=== PATIENT | male | born 1945 | race Caucasian/White ===

== ENCOUNTER → 2017-06-08 | Outpatient (CLI) | payer MEDICARE, OTHER ==
[~2017-06-08] MED LIST: ASPI81CH43 PO; CAR3125T PO; IRBE300T18 PO
== END | disposition home or self-care (01) ==
LOC: Rad HDHVI 12:46
PROVIDERS: ATTEND Internal Medicine Cardiovascular Disease
DX: I42.0 Dilated cardiomyopathy (principal); I50.23 Acute on chronic systolic (congestive) heart failure
CPT/HCPCS: 93306

== ENCOUNTER → 2017-06-12 | Outpatient (CLI) | payer MEDICARE, OTHER ==
[~2017-06-12] VITALS: Ht 177.8 cm; Wt 122.5 kg
[2017-06-12 16:24] LABS: Basophils # (auto) 0.1 uL; Basophils % (auto) 1.3 % (0.0-2.0); Eosinophils # (auto) 0.2 uL; Eosinophils % (auto) 3.1 % (0.0-7.0); Hematocrit 44.4 % (41.0-53.0); Hemoglobin 15.5 g/dL (13.5-17.5); Lymphocytes # (auto) 1.4 uL; Lymphocytes % (auto) 25.6 % (10.0-50.0); Mean Corpuscular Hemoglobin 32.3 pg (28.0-32.0); Mean Corpuscular Hgb Conc. 34.8 g/dL (32.0-36.0); Mean Corpuscular Volume 92.7 fL (80.0-100.0); Monocytes # (auto) 0.4 uL; Monocytes % (auto) 7.5 % (0.0-12.0); Neutrophils # (auto) 3.4 uL; Neutrophils % (auto) 62.5 % (37.0-80.0); Nucleated Red Blood Cells % 0.2 %; Platelet Count (auto) 176 10^3/uL (140-450); Red Blood Cells 4.79 10^6/uL (4.5-5.90); Red Cell Distribution Width 12.9 % (11.8-14.3); White Blood Cell 5.5 10^3/uL (4.4-10.8)
[2017-06-12 16:35] LABS: Free T4 (Free Thyroxine) 0.93 ng/dL (0.89-1.76); Prostate Specific Antigen 3.3 ng/mL (0.0-4.0)
[2017-06-12 16:43] LABS: Albumin 3.8 g/dL (3.4-5.0); BUN/Creatinine Ratio 13.4; Bilirubin, Total 0.9 mg/dL (0.2-1.0); Calcium 9.1 mg/dL (8.5-10.1); Potassium 3.5 mmol/L (3.5-5.1); Total Protein 7.3 g/dL (6.4-8.2)
[2017-06-12 17:19] LABS: Urine Blood Negative /uL (Negative); Urine Specific Gravity 1.016 (1.001-1.035)
== END | disposition home or self-care (01) ==
LOC: Rad HDHVI 10:19
PROVIDERS: ATTEND Internal Medicine Cardiovascular Disease
DX: I42.0 Dilated cardiomyopathy (principal); I11.0 Hypertensive heart disease with heart failure; I50.43 Acute on chronic combined systolic (congestive) and diastolic (congestive) heart failure; E78.00 Pure hypercholesterolemia, unspecified; D64.9 Anemia, unspecified; E11.9 Type 2 diabetes mellitus without complications; E03.9 Hypothyroidism, unspecified; E55.9 Vitamin D deficiency, unspecified; D51.9 Vitamin B12 deficiency anemia, unspecified; N39.0 Urinary tract infection, site not specified; R53.81 Other malaise; R97.20 Elevated prostate specific antigen [PSA]
CPT/HCPCS: 36415; 78452; 80053; 80061; 81003; 82306; 82607; 83036; 84153; 84402; 84403; 84439; 84443; 85025; 93017; 96374; A9500

== ENCOUNTER → 2018-04-13 | Outpatient (CLI) | payer MEDICARE, BC ==
[~2018-04-13] MED LIST changes: +AMLO5TAB13 PO; +CARV25TA55 PO; +CHOL100040 PO; +ENAL10TA9 PO; +GLIP-115 PO; +METF-370 PO
[2018-04-13 11:30] VITALS: BP 146/78
[2018-04-13 14:53] LABS: Potassium 3.3 mmol/L (3.5-5.1)
[2018-04-13 14:54] LABS: INR 0.98 (0.9-1.15); Partial Thromboplastin Time 30.5 sec (23.78-33.04); Prothrombin Time 10.5 sec (9.27-12.13)
[2018-04-13 15:10] LABS: Calcium 8.6 mg/dL (8.5-10.1)
[2018-04-13 16:12] LABS: Basophils # (auto) 0.1 uL; Basophils % (auto) 2.4 % (0.0-2.0); Eosinophils # (auto) 0.2 uL; Hematocrit 43.6 % (41.0-53.0); Hemoglobin 15.6 g/dL (13.5-17.5); Lymphocytes # (auto) 1.3 uL; Lymphocytes % (auto) 25.4 % (10.0-50.0); Mean Corpuscular Hemoglobin 33.4 pg (28.0-32.0); Mean Corpuscular Hgb Conc. 35.7 g/dL (32.0-36.0); Mean Corpuscular Volume 93.8 fL (80.0-100.0); Monocytes # (auto) 0.5 uL; Neutrophils # (auto) 3.1 uL; Neutrophils % (auto) 60.2 % (37.0-80.0); Nucleated Red Blood Cells % 0.5 %; Platelet Count (auto) 151 10^3/uL (140-450); Red Blood Cells 4.65 10^6/uL (4.5-5.90); Red Cell Distribution Width 13.1 % (11.8-14.3); White Blood Cell 5.1 10^3/uL (4.4-10.8)
== END | disposition home or self-care (01) ==
LOC: Rad HDHVI 11:00
PROVIDERS: ATTEND Internal Medicine Cardiovascular Disease
DX: Z01.818 Encounter for other preprocedural examination (principal); I70.0 Atherosclerosis of aorta; I51.7 Cardiomegaly; D64.9 Anemia, unspecified; R79.1 Abnormal coagulation profile; I10 Essential (primary) hypertension
CPT/HCPCS: 36415; 71046; 80048; 85025; 85610; 85730; 93005; G0463

== ENCOUNTER 2018-04-17 06:54 | Day surgery (SDC) | payer MEDICARE, OTHER ==
[~2018-04-17] VITALS: Ht 175.3 cm; Wt 122.5 kg
[~2018-04-17 06:54] MED LIST changes: -CAR3125T PO; -IRBE300T18 PO
[2018-04-17] MEDS ORDERED: ceFAZolin 1GM/50ML 50 ML IV ONE (07:45)
[2018-04-17] MEDS ORDERED: LIDOCAINE 2%HCL (LOCAL ANESTH.) INJ 20ML MDV ONE (07:57)
[2018-04-17] MEDS ORDERED: ceFAZolin 1GM VL ONE ×2 (08:00→09:08)
[2018-04-17] MEDS ORDERED: SODIUM CHL 0.9% 50 ML ONE (08:00)
[2018-04-17] MEDS ORDERED: MIDAZOLAM HCL 1MG/1ML-2 ML VIAL ONE (08:02)
[2018-04-17] MEDS ORDERED: fentaNYL CITRATE 100 MCG/2 ML VL ONE (08:02)
[2018-04-17] MEDS ORDERED: VANCOMYCIN HCL 1000 MG VL ONE (08:07)
[2018-04-17] MEDS ORDERED: VANCOMYCIN 1GM/250ML 250 ML IV ONE (08:08)
[2018-04-17] MEDS ORDERED: ACETAMINOPHEN 325 MG TAB PO PRN (10:00)
== END 2018-04-17 12:55 | disposition home or self-care (01) ==
LOC: CATH 06:54
PROVIDERS: ATTEND Internal Medicine Cardiovascular Disease
DX: Z45.010 Encounter for checking and testing of cardiac pacemaker pulse generator [battery] (principal); E78.00 Pure hypercholesterolemia, unspecified; E11.9 Type 2 diabetes mellitus without complications; I11.0 Hypertensive heart disease with heart failure; E78.5 Hyperlipidemia, unspecified; Z95.5 Presence of coronary angioplasty implant and graft; Z79.82 Long term (current) use of aspirin; Z79.84 Long term (current) use of oral hypoglycemic drugs; Z79.899 Other long term (current) drug therapy; Z87.891 Personal history of nicotine dependence
CPT/HCPCS: 33264; 93005; 99152; 99153; A6257; C1882; J0690; J2250; J3010; J3370; J7030

== ENCOUNTER → 2019-04-08 | Outpatient (CLI) | payer MEDICARE, OTHER ==
[~2019-04-08] MED LIST changes: -AMLO5TAB13 PO; +AMLO5TAB15 PO; -GLIP-115 PO; +GLIP5TAB12 PO
[2019-04-08 16:03] LABS: Albumin 3.9 g/dL (3.4-5.0); Potassium 3.8 mmol/L (3.5-5.1)
[2019-04-08 16:09] LABS: Prostate Specific Antigen 3.63 ng/mL (0.0-4.0)
[2019-04-08 16:11] LABS: BUN/Creatinine Ratio 13.9; Basophils # (auto) 0.1 uL; Basophils % (auto) 1.3 % (0.0-2.0); Bilirubin, Direct 0.1 mg/dL (0-0.2); Bilirubin, Total 0.5 mg/dL (0.2-1.0); Calcium 9.7 mg/dL (8.5-10.1); Eosinophils # (auto) 0.2 uL; Eosinophils % (auto) 2.8 % (0.0-7.0); Hematocrit 43.5 % (41.0-53.0); Hemoglobin 15.4 g/dL (13.5-17.5); Lymphocytes # (auto) 1.6 uL; Lymphocytes % (auto) 22.4 % (10.0-50.0); Mean Corpuscular Hemoglobin 31.6 pg (28.0-32.0); Mean Corpuscular Hgb Conc. 35.5 g/dL (32.0-36.0); Monocytes # (auto) 0.6 uL; Monocytes % (auto) 7.8 % (0.0-12.0); Neutrophils # (auto) 4.7 uL; Neutrophils % (auto) 65.7 % (37.0-80.0); Nucleated Red Blood Cells % 0.1 %; Platelet Count (auto) 200 10^3/uL (140-450); Red Blood Cells 4.89 10^6/uL (4.5-5.90); Total Protein 7.4 g/dL (6.4-8.2); White Blood Cell 7.2 10^3/uL (4.4-10.8)
== END | disposition home or self-care (01) ==
LOC: LAB 12:16
PROVIDERS: ATTEND Internal Medicine Cardiovascular Disease
DX: E03.9 Hypothyroidism, unspecified (principal); K90.9 Intestinal malabsorption, unspecified; C61 Malignant neoplasm of prostate; E29.1 Testicular hypofunction; D51.9 Vitamin B12 deficiency anemia, unspecified; Z79.899 Other long term (current) drug therapy; I42.0 Dilated cardiomyopathy; I11.9 Hypertensive heart disease without heart failure; E66.01 Morbid (severe) obesity due to excess calories; Z87.891 Personal history of nicotine dependence
CPT/HCPCS: 36415; 80048; 80061; 80076; 82306; 82607; 83036; 84153; 84403; 84443; 85025

== ENCOUNTER → 2019-12-20 | Outpatient (CLI) | payer MEDICARE, OTHER | END | disposition home or self-care (01) | LOC: Rad HDHVI 14:34 | PROVIDERS: ATTEND Internal Medicine Cardiovascular Disease | DX: I07.1 Rheumatic tricuspid insufficiency (principal); I11.0 Hypertensive heart disease with heart failure; I50.33 Acute on chronic diastolic (congestive) heart failure | CPT/HCPCS: 93306 ==

== ENCOUNTER → 2020-02-05 | Outpatient (CLI) | payer MEDICARE, OTHER | END | disposition home or self-care (01) | LOC: Rad HDHVI 15:30 | PROVIDERS: ATTEND Internal Medicine Cardiovascular Disease | DX: M43.17 Spondylolisthesis, lumbosacral region (principal); M51.27 Other intervertebral disc displacement, lumbosacral region; M48.07 Spinal stenosis, lumbosacral region; M40.56 Lordosis, unspecified, lumbar region | CPT/HCPCS: 72131 ==

== ENCOUNTER → 2020-02-11 | Outpatient (CLI) | payer MEDICARE, BC ==
[~2020-02-11] VITALS: Ht 177.8 cm; Wt 113.4 kg
== END | disposition home or self-care (01) ==
LOC: Rad HDHVI 12:58
PROVIDERS: ATTEND Internal Medicine Cardiovascular Disease
DX: I11.0 Hypertensive heart disease with heart failure (principal); I50.33 Acute on chronic diastolic (congestive) heart failure; E11.9 Type 2 diabetes mellitus without complications; E78.00 Pure hypercholesterolemia, unspecified; R06.02 Shortness of breath
CPT/HCPCS: 78452; 93017; 96374; A9500

== ENCOUNTER → 2020-04-20 | Outpatient (CLI) | payer MEDICARE, BC | END | disposition home or self-care (01) | LOC: LAB 10:59 | PROVIDERS: ATTEND Internal Medicine Cardiovascular Disease | DX: E11.9 Type 2 diabetes mellitus without complications (principal) | CPT/HCPCS: 36415; 83036 ==

== ENCOUNTER → 2020-09-28 | Outpatient (CLI) | payer MEDICARE, BC ==
[~2020-09-28] MED LIST changes: +AMLO-489 PO; -AMLO5TAB15 PO
[2020-09-28 12:00] LABS: Basophils # (auto) 0.1 10 ^3/uL (0-0.2); Basophils % (auto) 1.6 % (0.0-2.0); Eosinophils # (auto) 0.3 10 ^3/uL (0-0.8); Eosinophils % (auto) 4.7 % (0.0-7.0); Hematocrit 43.2 % (41.0-53.0); Hemoglobin 15.5 g/dL (13.5-17.5); Lymphocytes % (auto) 27.8 % (10.0-50.0); Mean Corpuscular Hemoglobin 31.1 pg (28.0-32.0); Mean Corpuscular Hgb Conc. 35.8 g/dL (32.0-36.0); Monocytes # (auto) 0.5 10 ^3/uL (0-1.3); Monocytes % (auto) 6.7 % (0.0-12.0); Neutrophils # (auto) 4.2 10 ^3/uL (1.6-8.6); Neutrophils % (auto) 59.2 % (37.0-80.0); Nucleated Red Blood Cells % 0.2 %; Platelet Count (auto) 206 10^3/uL (140-450); Red Blood Cells 4.97 10^6/uL (4.5-5.90); Red Cell Distribution Width 13.6 % (11.8-14.3)
[2020-09-28 12:08] LABS: Urine Blood Negative /uL (Negative); Urine Specific Gravity 1.023 (1.001-1.035)
[2020-09-28 12:25] LABS: Potassium 3.6 mmol/L (3.5-5.1)
[2020-09-28 12:40] LABS: Albumin 3.7 g/dL (3.4-5.0); BUN/Creatinine Ratio 14.1; Bilirubin, Total 0.8 mg/dL (0.2-1.0); Calcium 9.2 mg/dL (8.5-10.1); Total Protein 7.3 g/dL (6.4-8.2)
[2020-09-28 12:45] LABS: Free T4 (Free Thyroxine) 1.02 ng/dL (0.89-1.76)
[2020-09-28 13:06] LABS: Prostate Specific Antigen 4.12 ng/mL (0.0-4.0)
== END | disposition home or self-care (01) ==
LOC: LAB 10:12
PROVIDERS: ATTEND Internal Medicine Cardiovascular Disease
DX: C61 Malignant neoplasm of prostate (principal); D51.3 Other dietary vitamin B12 deficiency anemia; I10 Essential (primary) hypertension; E11.9 Type 2 diabetes mellitus without complications; E55.9 Vitamin D deficiency, unspecified; D64.9 Anemia, unspecified; R00.2 Palpitations; R53.1 Weakness; R30.0 Dysuria
CPT/HCPCS: 36415; 80053; 80061; 81003; 82306; 82607; 83036; 84153; 84154; 84403; 84439; 84443; 85025

== ENCOUNTER → 2021-04-19 | Outpatient (CLI) | payer MEDICARE, BC ==
[~2021-04-19] MED LIST changes: +ENAL10TA40 PO; -ENAL10TA9 PO
== END | disposition home or self-care (01) ==
LOC: Rad HDHVI 12:47
PROVIDERS: ATTEND Internal Medicine Cardiovascular Disease
DX: R06.02 Shortness of breath (principal); E78.5 Hyperlipidemia, unspecified
CPT/HCPCS: 93306

== ENCOUNTER → 2021-04-28 | Outpatient (CLI) | payer MEDICARE, BC ==
[~2021-04-28] VITALS: Ht 177.8 cm; Wt 117.9 kg
== END | disposition home or self-care (01) ==
LOC: Rad HDHVI 13:01
PROVIDERS: ATTEND Internal Medicine Cardiovascular Disease
DX: I10 Essential (primary) hypertension (principal); E78.5 Hyperlipidemia, unspecified; E11.9 Type 2 diabetes mellitus without complications; Z95.0 Presence of cardiac pacemaker
CPT/HCPCS: 78452; 93017; 96374; A9500

== ENCOUNTER 2021-08-19 10:18 | Emergency (ER) | payer MEDICARE, OTHER ==
[~2021-08-19] VITALS: Ht 177.8 cm; Wt 113.4 kg
[2021-08-19 11:32] LABS: Urine WBC None Seen /hpf (0 - 3)
[2021-08-19 11:44] LABS: Urine Bacteria NONE SEEN /hpf (None Seen); Urine Blood Negative /uL (Negative); Urine Hyaline Cast FEW /lpf (0 - 2); Urine Specific Gravity 1.017 (1.001-1.035)
[2021-08-19 11:55] LABS: INR 1.08 (0.9-1.15); Partial Thromboplastin Time 28.5 sec (23.6-33.0)
[2021-08-19 11:58] LABS: Potassium 3.6 mmol/L (3.5-5.1)
[2021-08-19 12:07] LABS: Albumin 3.6 g/dL (3.4-5.0); BUN/Creatinine Ratio 16.5; Bilirubin, Total 0.8 mg/dL (0.2-1.0); Calcium 9.6 mg/dL (8.5-10.1); Total Protein 6.9 g/dL (6.4-8.2)
[2021-08-19 12:28] LABS: Basophils # (auto) 0.1 10 ^3/uL (0-0.2); Basophils % (auto) 1.3 % (0.0-2.0); Eosinophils # (auto) 0.4 10 ^3/uL (0-0.8); Eosinophils % (auto) 5.2 % (0.0-7.0); Hematocrit 44.1 % (41.0-53.0); Hemoglobin 15.5 g/dL (13.5-17.5); Lymphocytes # (auto) 1.8 10 ^3/uL (0.4-5.4); Mean Corpuscular Hemoglobin 31.2 pg (28.0-32.0); Mean Corpuscular Hgb Conc. 35.3 g/dL (32.0-36.0); Mean Corpuscular Volume 88.4 fL (80.0-100.0); Monocytes # (auto) 0.4 10 ^3/uL (0-1.3); Monocytes % (auto) 6.1 % (0.0-12.0); Neutrophils # (auto) 4.1 10 ^3/uL (1.6-8.6); Neutrophils % (auto) 60.4 % (37.0-80.0); Nucleated Red Blood Cells % 0.2 %; Red Blood Cells 4.98 10^6/uL (4.5-5.90); Red Cell Distribution Width 13.2 % (11.8-14.3); White Blood Cell 6.8 10^3/uL (4.4-10.8)
[2021-08-19 15:04] VITALS: BP 148/96
[2021-08-19] MEDS ORDERED: FUROSEMIDE 40 MG/4 ML VIAL IV ONE (15:15)
[2021-08-23] MEDS ORDERED: CHOL50007 PO (14:54)
[2021-08-23] MEDS ORDERED: GLIP10TA9 PO (14:54)
[2021-08-23] MEDS ORDERED: FURO1TAB33 PO (15:35)
[2021-08-23] MEDS ORDERED: MULT-1018 PO (15:35)
[2021-08-23] MEDS ORDERED: SACU1TAB PO (15:35)
[2021-08-23] MEDS ORDERED: SILD100T57 PO (15:35)
[2021-08-23] MEDS ORDERED: POTA1TAB61 PO (15:35)
== END 2021-08-19 15:59 | disposition home or self-care (01) ==
LOC: ER 10:18
DX: I11.0 Hypertensive heart disease with heart failure (principal); I50.9 Heart failure, unspecified; E11.9 Type 2 diabetes mellitus without complications; Z95.0 Presence of cardiac pacemaker
CPT/HCPCS: 36415; 71045; 80053; 81001; 83880; 84484; 85025; 85610; 85730; 93005; 96374; 99285; J1940; J7030

== ENCOUNTER → 2021-08-23 | Outpatient (CLI) | payer MEDICARE, OTHER ==
[~2021-08-23] MED LIST changes: +CHOL50007 PO; +FURO1TAB33 PO; +GLIP10TA9 PO; +MULT-1018 PO; +POTA1TAB61 PO; +SACU1TAB PO; +SILD100T57 PO
[2021-08-23 11:29] VITALS: BP 133/82
[2021-08-23 11:46] VITALS: BP 130/85
== END | disposition home or self-care (01) ==
LOC: CHF HDHVI 11:15
PROVIDERS: ATTEND Internal Medicine Cardiovascular Disease
DX: I11.0 Hypertensive heart disease with heart failure (principal); I50.9 Heart failure, unspecified; I48.91 Unspecified atrial fibrillation; R06.02 Shortness of breath
CPT/HCPCS: 93005; G0463

== ENCOUNTER 2021-08-24 12:02 | Inpatient (IN) | payer MEDICARE, OTHER ==
[~2021-08-24] VITALS: Ht 177.8 cm; Wt 123.1 kg
[2021-08-24] VITALS (10 sets, daily range): BP systolic 111–133; BP diastolic 78–98
[~2021-08-24 12:02] MED LIST changes: -AMLO-489 PO; -ENAL10TA40 PO; -GLIP5TAB12 PO
[2021-08-24] MEDS ORDERED: LIDOCAINE 2%HCL (LOCAL ANESTH.) INJ 10ml MDV ONE ×2 (13:25→14:08)
[2021-08-24] MEDS ORDERED: IOHEXOL 350 MG/ML 100ML IJ ONE (13:25)
[2021-08-24] MEDS ORDERED: MIDAZOLAM HCL 2MG/2ML 2ml VIAL (1mg/ml) ONE (13:38)
[2021-08-24] MEDS ORDERED: fentaNYL CITRATE 100 MCG/2 ML VL ONE ×2 (13:38→15:11)
[2021-08-24] MEDS ORDERED: ANGIOMAX 250 MG VIAL IV ONE (13:39)
[2021-08-24] MEDS ORDERED: SODIUM CHL 0.9% 50 ML ONE (13:39)
[2021-08-24] MEDS ORDERED: HYDROmorphone HCL 2 MG/ML VL ONE (15:17)
[2021-08-24] MEDS ORDERED: HYDROcodone-ACET 10/325MG TAB PO PRN (15:45)
[2021-08-24] MEDS ORDERED: MORPHINE SULFATE INJECTION 2 MG/ML SYRG IV PRN (15:45)
[2021-08-24] MEDS ORDERED: NITROGLYCERIN 0.4 MG SL TAB SL PRN (15:45)
[2021-08-24] MEDS ORDERED: DEXTROSE (50%) 50ML SYRG IV PRN (15:45)
[2021-08-24] MEDS ORDERED: TEMAZEPAM 15 MG CAP PO PRN (16:15)
[2021-08-24] MEDS: InsuLIN REG 1unit/0.01ml Soln (100units/ml) SC SCH (17:00)
[2021-08-24] MEDS: SODIUM CHLORIDE 0.9% 500 ML IV SCH ×2 (17:03→23:21)
[2021-08-24] MEDS: ACCU-CHEK COMFORT CURVE STRIP VI SCH ×2 (17:06→23:21)
[2021-08-24] MEDS ORDERED: InsuLIN REG 1unit/0.01ml Soln (100units/ml) SC SCH (22:00)
[2021-08-24] MEDS: CARVEDILOL 12.5 MG TAB PO SCH (23:19)
[2021-08-24] MEDS: SACUBITRIL-VALSARTAN 24mg/26mg TAB PO SCH (23:20)
[2021-08-25] VITALS (7 sets, daily range): BP systolic 112–120; BP diastolic 64–75
[2021-08-25] MEDS: CARVEDILOL 12.5 MG TAB PO SCH ×2 (00:19→09:47)
[2021-08-25] MEDS: SODIUM CHLORIDE 0.9% 500 ML IV SCH ×3 (03:59→17:30)
[2021-08-25] MEDS: InsuLIN REG 1unit/0.01ml Soln (100units/ml) SC SCH ×3 (06:26→17:00)
[2021-08-25] MEDS: ACCU-CHEK COMFORT CURVE STRIP VI SCH ×3 (06:27→17:28)
[2021-08-25] MEDS: SACUBITRIL-VALSARTAN 24mg/26mg TAB PO SCH (09:45)
[2021-08-31] MEDS ORDERED: CLOP75TA28 PO (15:59)
[2021-08-31] MEDS ORDERED: BUDE1AER6 IN (16:35)
[2021-08-31] MEDS ORDERED: TEMA15CA2 PO (16:35)
== END 2021-08-25 15:40 | disposition home or self-care (01) | DRG 251 ==
LOC: CATH 12:02 → CENTRAL 15:40 → TELE-CENTR 22:36
PROVIDERS: ADMIT Internal Medicine Cardiovascular Disease; ATTEND Internal Medicine Cardiovascular Disease
PROC: 02703ZZ Dilation of Coronary Artery, One Artery, Percutaneous Approach (ICD-10-PCS; principal; 2021-08-24)
PROC: 4A023N7 Measurement of Cardiac Sampling and Pressure, Left Heart, Percutaneous Approach (ICD-10-PCS; 2021-08-24)
PROC: B2111ZZ Fluoroscopy of Multiple Coronary Arteries using Low Osmolar Contrast (ICD-10-PCS; 2021-08-24)
PROC: B2151ZZ Fluoroscopy of Left Heart using Low Osmolar Contrast (ICD-10-PCS; 2021-08-24)
PROC: 4A033BC Measurement of Arterial Pressure, Coronary, Percutaneous Approach (ICD-10-PCS; 2021-08-24)
PROC: B240ZZ3 Ultrasonography of Single Coronary Artery, Intravascular (ICD-10-PCS; 2021-08-24)
PROC: B4101ZZ Fluoroscopy of Abdominal Aorta using Low Osmolar Contrast (ICD-10-PCS; 2021-08-24)
DX: I25.10 Atherosclerotic heart disease of native coronary artery without angina pectoris (principal); I42.0 Dilated cardiomyopathy; Z20.822 Contact with and (suspected) exposure to COVID-19; G47.00 Insomnia, unspecified; S30.1XXA Contusion of abdominal wall, initial encounter
CPT/HCPCS: 75625; 82962; 92920; 92978; 93458; 93571; 99152; 99153; C1874; C1887; G0378; J1815; J2001; J2250

== ENCOUNTER → 2021-08-31 | Outpatient (CLI) | payer MEDICARE, OTHER ==
[~2021-08-31] MED LIST changes: +BUDE1AER6 IN; +CLOP75TA28 PO; +TEMA15CA2 PO
[2021-08-31 10:58] VITALS: BP 131/90
[2021-08-31 11:06] VITALS: BP 132/86
[2021-08-31 11:43] LABS: Basophils # (auto) 0.1 10 ^3/uL (0-0.2); Basophils % (auto) 1.3 % (0.0-2.0); Eosinophils # (auto) 0.2 10 ^3/uL (0-0.8); Eosinophils % (auto) 3.3 % (0.0-7.0); Hematocrit 37.3 % (41.0-53.0); Hemoglobin 13.1 g/dL (13.5-17.5); Lymphocytes # (auto) 1.3 10 ^3/uL (0.4-5.4); Lymphocytes % (auto) 23.6 % (10.0-50.0); Mean Corpuscular Hemoglobin 31.6 pg (28.0-32.0); Mean Corpuscular Volume 90.4 fL (80.0-100.0); Monocytes # (auto) 0.5 10 ^3/uL (0-1.3); Monocytes % (auto) 9.6 % (0.0-12.0); Neutrophils # (auto) 3.3 10 ^3/uL (1.6-8.6); Neutrophils % (auto) 62.2 % (37.0-80.0); Nucleated Red Blood Cells % 0.3 %; Red Blood Cells 4.13 10^6/uL (4.5-5.90); Red Cell Distribution Width 14.1 % (11.8-14.3); White Blood Cell 5.4 10^3/uL (4.4-10.8)
[2021-08-31 12:05] LABS: Potassium 3.4 mmol/L (3.5-5.1)
[2021-08-31 12:15] LABS: BUN/Creatinine Ratio 8.2
[2021-08-31 12:18] LABS: INR 1.12 (0.9-1.15); Partial Thromboplastin Time 28.7 sec (23.6-33.0)
== END | disposition home or self-care (01) ==
LOC: Rad HDHVI 10:42
PROVIDERS: ATTEND Internal Medicine Cardiovascular Disease
DX: Z01.812 Encounter for preprocedural laboratory examination (principal); I11.0 Hypertensive heart disease with heart failure; I50.9 Heart failure, unspecified; R06.02 Shortness of breath; Q25.46 Tortuous aortic arch; J43.9 Emphysema, unspecified; M47.814 Spondylosis without myelopathy or radiculopathy, thoracic region; M19.019 Primary osteoarthritis, unspecified shoulder
CPT/HCPCS: 36415; 71046; 80048; 85025; 85610; 85730; G0463

== ENCOUNTER 2021-09-02 12:05 | Inpatient (IN) | payer MEDICARE, OTHER ==
[~2021-09-02] VITALS: Ht 177.8 cm; Wt 118.6 kg
[2021-09-02] MEDS ORDERED: MIDAZOLAM HCL 2MG/2ML 2ml VIAL (1mg/ml) ONE ×3 (15:23→16:51)
[2021-09-02] MEDS ORDERED: fentaNYL CITRATE 100 MCG/2 ML VL ONE ×2 (15:23→16:45)
[2021-09-02] MEDS ORDERED: HEPARIN SODIUM (PORCINE) 5000 UNITS/ML 1ML VIAL ONE (15:24)
[2021-09-02] MEDS ORDERED: VERAPAMIL 2.5MG/ML INJ 2ML VIAL IV ONE (15:24)
[2021-09-02] MEDS ORDERED: ANGIOMAX 250 MG VIAL IV ONE (15:24)
[2021-09-02] MEDS ORDERED: SODIUM CHL 0.9% 50 ML ONE (15:25)
[2021-09-02] MEDS ORDERED: IODIXANOL 320MG/ML 100ML BTL IV ONE ×2 (15:31→16:33)
[2021-09-02] MEDS ORDERED: diphenhdrAMINE HCL 50 MG/1 ML VL ONE (16:36)
[2021-09-02] MEDS ORDERED: AMIODARONE 450mg/250ml AE 250 ML IV ONE (16:56)
[2021-09-02] MEDS ORDERED: AMIODARONE HCL (50 MG/ ML) 3 ML VIAL IV ONE ×2 (16:57)
[2021-09-02] MEDS ORDERED: NITROGLYCERIN 0.4 MG SL TAB SL PRN (17:30)
[2021-09-02] MEDS ORDERED: DEXTROSE (50%) 50ML SYRG IV PRN (17:30)
[2021-09-02] MEDS ORDERED: CLOPIDOGREL BISULFATE 75 MG TAB ONE (17:45)
[2021-09-02] MEDS: CLOPIDOGREL BISULFATE 75 MG TAB PO SCH (18:00)
[2021-09-02] MEDS ORDERED: AMIODARONE 450mg/250ml AE 250 ML IV SCH ×2 (18:30→23:45)
[2021-09-02] MEDS: METOPROLOL SUCCINATE XL 50 MG TAB PO SCH (21:51)
[2021-09-02] MEDS: SACUBITRIL-VALSARTAN 24mg/26mg TAB PO SCH (21:51)
[2021-09-02] MEDS: ACCU-CHEK COMFORT CURVE STRIP VI SCH (21:51)
[2021-09-02 22:00] VITALS: BP 122/71
[2021-09-02] MEDS: InsuLIN REG 1unit/0.01ml Soln (100units/ml) SC SCH (22:05)
[2021-09-03] MEDS ORDERED: PNEUMOCOCCAL VACC POLYS 25 MCG/0.5 ML VIAL IM ONE (03:45)
[2021-09-03] MEDS ORDERED: INFLUENZA QUAD 2021-2022 0.5 ML SYRG IM ONE (03:45)
[2021-09-03 05:00] VITALS: BP 129/84
[2021-09-03 05:49] LABS: Basophils # (auto) 0.1 10 ^3/uL (0-0.2); Eosinophils # (auto) 0.1 10 ^3/uL (0-0.8); Eosinophils % (auto) 2.1 % (0.0-7.0); Hemoglobin 12.7 g/dL (13.5-17.5); Lymphocytes # (auto) 1.2 10 ^3/uL (0.4-5.4); Lymphocytes % (auto) 16.2 % (10.0-50.0); Mean Corpuscular Hemoglobin 32.7 pg (28.0-32.0); Mean Corpuscular Hgb Conc. 36.3 g/dL (32.0-36.0); Monocytes # (auto) 0.4 10 ^3/uL (0-1.3); Monocytes % (auto) 6.1 % (0.0-12.0); Neutrophils # (auto) 5.4 10 ^3/uL (1.6-8.6); Neutrophils % (auto) 74.6 % (37.0-80.0); Nucleated Red Blood Cells % 0.1 %; Red Blood Cells 3.89 10^6/uL (4.5-5.90); Red Cell Distribution Width 14.1 % (11.8-14.3); White Blood Cell 7.2 10^3/uL (4.4-10.8)
[2021-09-03] MEDS: glipiZIDE 5 MG TAB PO SCH (06:36)
[2021-09-03] MEDS: ACCU-CHEK COMFORT CURVE STRIP VI SCH ×4 (06:36→22:33)
[2021-09-03] MEDS: InsuLIN REG 1unit/0.01ml Soln (100units/ml) SC SCH ×4 (06:38→22:36)
[2021-09-03 07:00] LABS: Potassium 2.7 mmol/L (3.5-5.1)
[2021-09-03 08:00] VITALS: BP 151/95
[2021-09-03] MEDS: METOPROLOL SUCCINATE XL 50 MG TAB PO SCH ×2 (09:20→22:32)
[2021-09-03] MEDS: CLOPIDOGREL BISULFATE 75 MG TAB PO SCH (09:21)
[2021-09-03] MEDS: SACUBITRIL-VALSARTAN 24mg/26mg TAB PO SCH ×2 (09:21→22:32)
[2021-09-03] MEDS: XARELTO 2.5 MG PO SCH (10:00)
[2021-09-03] MEDS ORDERED: POTASSIUM EFFERVESENT TAB 25 MEQ GT ONE (16:30)
[2021-09-03 17:00] VITALS: BP 157/95
[2021-09-03 22:00] VITALS: BP 140/91
[2021-09-04 05:00] VITALS: BP 138/88
[2021-09-04] MEDS: glipiZIDE 5 MG TAB PO SCH (06:33)
[2021-09-04] MEDS: ACCU-CHEK COMFORT CURVE STRIP VI SCH ×3 (06:33→17:00)
[2021-09-04] MEDS: InsuLIN REG 1unit/0.01ml Soln (100units/ml) SC SCH ×3 (06:38→17:00)
[2021-09-04 09:00] VITALS: BP 141/91
[2021-09-04] MEDS: METOPROLOL SUCCINATE XL 50 MG TAB PO SCH (09:39)
[2021-09-04] MEDS: CLOPIDOGREL BISULFATE 75 MG TAB PO SCH (09:39)
[2021-09-04] MEDS: SACUBITRIL-VALSARTAN 24mg/26mg TAB PO SCH (09:40)
[2021-09-04] MEDS: XARELTO 2.5 MG PO SCH (10:00)
[2021-09-04 12:52] VITALS: BP 125/81
[2021-09-04 17:00] VITALS: BP 136/97
[2021-09-04 18:05] VITALS: BP 136/97
== END 2021-09-04 19:40 | disposition home or self-care (01) | DRG 246 ==
LOC: CATH 12:05 → TELE-EAST 17:26
PROVIDERS: ADMIT Internal Medicine Cardiovascular Disease; ATTEND Internal Medicine Cardiovascular Disease
PROC: 027035Z Dilation of Coronary Artery, One Artery with Two Drug-eluting Intraluminal Devices, Percutaneous Approach (ICD-10-PCS; principal; 2021-09-03)
PROC: B2111ZZ Fluoroscopy of Multiple Coronary Arteries using Low Osmolar Contrast (ICD-10-PCS; 2021-09-03)
PROC: 5A2204Z Restoration of Cardiac Rhythm, Single (ICD-10-PCS; 2021-09-03)
DX: I25.119 Atherosclerotic heart disease of native coronary artery with unspecified angina pectoris (principal); I50.21 Acute systolic (congestive) heart failure; E11.9 Type 2 diabetes mellitus without complications; E87.6 Hypokalemia; G47.00 Insomnia, unspecified; G62.9 Polyneuropathy, unspecified; I48.91 Unspecified atrial fibrillation; M06.9 Rheumatoid arthritis, unspecified; Z98.61 Coronary angioplasty status; Z20.822 Contact with and (suspected) exposure to COVID-19
CPT/HCPCS: 36415; 71046; 80048; 82962; 84132; 85025; 85610; 85730; 87081; 92928; 92929; 93454; 99152; 99153; C1874; C1887; G0378; G0463; J1815; J2001; J2250; Q9967

== ENCOUNTER → 2021-10-22 | Outpatient (CLI) | payer MEDICARE, OTHER ==
[~2021-10-22] VITALS: Ht 177.8 cm; Wt 119.7 kg
[~2021-10-22] MED LIST changes: +RIVA2.5T PO
== END | disposition home or self-care (01) ==
LOC: LAB 12:33 → EDSTATUS 10-26 07:18
PROVIDERS: ATTEND Internal Medicine Cardiovascular Disease
DX: I48.91 Unspecified atrial fibrillation (principal); Z53.8 Procedure and treatment not carried out for other reasons; I50.9 Heart failure, unspecified; Z87.891 Personal history of nicotine dependence; Z82.61 Family history of arthritis; Z20.822 Contact with and (suspected) exposure to COVID-19

== ENCOUNTER → 2022-02-23 | Outpatient (CLI) | payer MEDICARE, OTHER ==
[~2022-02-23] MED LIST changes: -CHOL50007 PO; -MULT-1018 PO; -SILD100T57 PO
[2022-02-23 14:45] LABS: Urine Blood Negative /uL (Negative); Urine Specific Gravity 1.019 (1.001-1.035)
[2022-02-23 14:49] LABS: Basophils # (auto) 0.1 10 ^3/uL (0-0.2); Basophils % (auto) 0.7 % (0.0-2.0); Eosinophils # (auto) 0.1 10 ^3/uL (0-0.8); Eosinophils % (auto) 1.1 % (0.0-7.0); Hematocrit 36.6 % (41.0-53.0); Hemoglobin 12.2 g/dL (13.5-17.5); Lymphocytes # (auto) 0.9 10 ^3/uL (0.4-5.4); Lymphocytes % (auto) 11.3 % (10.0-50.0); Mean Corpuscular Hemoglobin 29.8 pg (28.0-32.0); Mean Corpuscular Hgb Conc. 33.2 g/dL (32.0-36.0); Mean Corpuscular Volume 89.7 fL (80.0-100.0); Monocytes # (auto) 0.6 10 ^3/uL (0-1.3); Monocytes % (auto) 7.5 % (0.0-12.0); Neutrophils # (auto) 6.3 10 ^3/uL (1.6-8.6); Neutrophils % (auto) 79.4 % (37.0-80.0); Red Blood Cells 4.08 10^6/uL (4.5-5.90); Red Cell Distribution Width 14.2 % (11.8-14.3)
[2022-02-23 14:56] LABS: Albumin 2.8 g/dL (3.4-5.0); Calcium 8.7 mg/dL (8.5-10.1); Potassium 3.6 mmol/L (3.5-5.1)
[2022-02-23 15:03] LABS: BUN/Creatinine Ratio 18.3; Bilirubin, Direct 0.3 mg/dL (0-0.2); Bilirubin, Total 1.1 mg/dL (0.2-1.0); Total Protein 6.8 g/dL (6.4-8.2)
== END | disposition home or self-care (01) ==
LOC: Rad HDHVI 13:12
PROVIDERS: ATTEND Internal Medicine Cardiovascular Disease
DX: K40.20 Bilateral inguinal hernia, without obstruction or gangrene, not specified as recurrent (principal); K42.9 Umbilical hernia without obstruction or gangrene; K57.30 Diverticulosis of large intestine without perforation or abscess without bleeding; M16.0 Bilateral primary osteoarthritis of hip; M47.817 Spondylosis without myelopathy or radiculopathy, lumbosacral region; R59.9 Enlarged lymph nodes, unspecified; E55.9 Vitamin D deficiency, unspecified; D51.3 Other dietary vitamin B12 deficiency anemia; D64.9 Anemia, unspecified; E11.9 Type 2 diabetes mellitus without complications; R00.2 Palpitations; R53.1 Weakness; R30.0 Dysuria; C61 Malignant neoplasm of prostate; I11.0 Hypertensive heart disease with heart failure; I50.23 Acute on chronic systolic (congestive) heart failure
CPT/HCPCS: 36415; 72192; 80048; 80061; 80076; 81003; 82306; 83036; 83880; 84153; 84403; 84443; 85025

== ENCOUNTER → 2022-02-24 | Outpatient (CLI) | payer MEDICARE, OTHER | END | disposition home or self-care (01) | LOC: Rad HDHVI 13:44 | PROVIDERS: ATTEND Internal Medicine Cardiovascular Disease | DX: I08.3 Combined rheumatic disorders of mitral, aortic and tricuspid valves (principal); I10 Essential (primary) hypertension; E78.5 Hyperlipidemia, unspecified | CPT/HCPCS: 93306 ==

== ENCOUNTER 2022-03-08 06:13 | Inpatient (IN) | payer MEDICARE, OTHER ==
[~2022-03-08] VITALS: Ht 177.8 cm; Wt 99.6 kg
[2022-03-08 07:23] LABS: Urine Bacteria NONE SEEN /hpf (None Seen); Urine Blood Negative /uL (Negative); Urine Hyaline Cast FEW /lpf (0 - 2); Urine Mucus FEW (None Seen); Urine Specific Gravity 1.013 (1.001-1.035); Urine WBC 2 /hpf (0 - 3)
[2022-03-08 07:40] LABS: Basophils # (auto) 0 10 ^3/uL (0-0.2); Basophils % (auto) 0.3 % (0.0-2.0); Eosinophils # (auto) 0.1 10 ^3/uL (0-0.8); Hematocrit 37.4 % (41.0-53.0); Hemoglobin 12.7 g/dL (13.5-17.5); Lymphocytes # (auto) 0.7 10 ^3/uL (0.4-5.4); Lymphocytes % (auto) 6.5 % (10.0-50.0); Mean Corpuscular Hemoglobin 29.9 pg (28.0-32.0); Mean Corpuscular Volume 88.1 fL (80.0-100.0); Monocytes # (auto) 0.8 10 ^3/uL (0-1.3); Monocytes % (auto) 7.3 % (0.0-12.0); Neutrophils # (auto) 9.6 10 ^3/uL (1.6-8.6); Neutrophils % (auto) 84.9 % (37.0-80.0); Red Blood Cells 4.24 10^6/uL (4.5-5.90); Red Cell Distribution Width 14.8 % (11.8-14.3); White Blood Cell 11.3 10^3/uL (4.4-10.8)
[2022-03-08 07:55] LABS: Albumin 2.8 g/dL (3.4-5.0); BUN/Creatinine Ratio 12.9; Calcium 8.5 mg/dL (8.5-10.1); Potassium 3.9 mmol/L (3.5-5.1)
[2022-03-08 08:01] LABS: Bilirubin, Total 0.6 mg/dL (0.2-1.0); Total Protein 6.5 g/dL (6.4-8.2)
[2022-03-08] MEDS ORDERED: DEXTROSE 50% SYRINGE 50 ML IV ONE (09:49)
[2022-03-08] MEDS ORDERED: DEXTROSE (50%) 50ML SYRG IV ONE ×2 (10:00→17:15)
[2022-03-08] MEDS ORDERED: D5W/SOD CHL 0.45% 1,000 ML IV ONE (10:00)
[2022-03-08] MEDS ORDERED: DEXTROSE 10% 1,000 ML IV ONE (17:15)
[2022-03-08] MEDS ORDERED: NITROGLYCERIN 0.4 MG SL TAB SL PRN ×3 (17:15→18:30)
[2022-03-08] MEDS ORDERED: MORPHINE SULFATE INJ 2 MG/ml SYRG IV PRN ×3 (17:15→18:30)
[2022-03-08] MEDS ORDERED: DEXTROSE 10% 1,000 ML IV SCH ×2 (17:15→18:00)
[2022-03-08] MEDS ORDERED: ACCU-CHEK COMFORT CURVE STRIP VI SCH ×4 (18:00→22:00)
[2022-03-08] MEDS ORDERED: Ensure Enlive Strawberry 8oz Bottle PO SCH ×2 (18:00)
[2022-03-08 18:45] VITALS: BP 107/53
[2022-03-08 19:00] VITALS: BP 107/53
[2022-03-08 20:00] VITALS: BP 97/46
[2022-03-08] MEDS: ACCU-CHEK COMFORT CURVE STRIP VI SCH ×5 (20:00→22:00)
[2022-03-08 21:00] VITALS: BP 104/52
[2022-03-08] MEDS: Ensure Enlive Strawberry 8oz Bottle PO SCH (22:00)
[2022-03-09] VITALS (19 sets, daily range): BP systolic 103–164; BP diastolic 47–88
[2022-03-09] MEDS: ACCU-CHEK COMFORT CURVE STRIP VI SCH ×5 (02:00→23:19)
[2022-03-09 05:55] LABS: Potassium 3.4 mmol/L (3.5-5.1)
[2022-03-09] MEDS: Ensure Enlive Strawberry 8oz Bottle PO SCH ×4 (06:00→21:26)
[2022-03-09 06:08] LABS: Albumin 2.3 g/dL (3.4-5.0); BUN/Creatinine Ratio 12.9; Bilirubin, Total 0.5 mg/dL (0.2-1.0); Calcium 8.2 mg/dL (8.5-10.1); Magnesium 1.7 mg/dL (1.6-2.6); Total Protein 5.3 g/dL (6.4-8.2)
[2022-03-09 06:18] LABS: Basophils # (auto) 0.1 10 ^3/uL (0-0.2); Basophils % (auto) 0.8 % (0.0-2.0); Eosinophils # (auto) 0.3 10 ^3/uL (0-0.8); Eosinophils % (auto) 2.9 % (0.0-7.0); Hemoglobin 10.9 g/dL (13.5-17.5); Lymphocytes # (auto) 1.1 10 ^3/uL (0.4-5.4); Lymphocytes % (auto) 12.7 % (10.0-50.0); Mean Corpuscular Hemoglobin 30.8 pg (28.0-32.0); Monocytes # (auto) 0.8 10 ^3/uL (0-1.3); Monocytes % (auto) 9.5 % (0.0-12.0); Neutrophils # (auto) 6.4 10 ^3/uL (1.6-8.6); Neutrophils % (auto) 74.1 % (37.0-80.0); Red Blood Cells 3.53 10^6/uL (4.5-5.90); Red Cell Distribution Width 14.8 % (11.8-14.3); White Blood Cell 8.6 10^3/uL (4.4-10.8)
[2022-03-09] MEDS ORDERED: OMEG120015 PO (14:47)
[2022-03-09] MEDS ORDERED: AMIO200T33 PO (14:47)
[2022-03-09] MEDS ORDERED: TAM04C PO (14:47)
[2022-03-09] MEDS ORDERED: MULT-1018 PO (14:47)
[2022-03-09] MEDS ORDERED: DEXTROSE (50%) 50ML SYRG IV PRN (15:15)
[2022-03-09] MEDS ORDERED: POTASSIUM CHL 20 Meq TABLET PO ONE (17:00)
[2022-03-09] MEDS: InsuLIN REG 1unit/0.01ml Soln (100units/ml) SC SCH ×2 (18:18→23:14)
[2022-03-09] MEDS ORDERED: TEMAZEPAM 15 MG CAP PO ONE (21:00)
[2022-03-10 04:00] VITALS: BP 144/70
[2022-03-10 05:07] LABS: Basophils # (auto) 0.1 10 ^3/uL (0-0.2); Basophils % (auto) 0.9 % (0.0-2.0); Eosinophils # (auto) 0.2 10 ^3/uL (0-0.8); Eosinophils % (auto) 3.1 % (0.0-7.0); Hematocrit 31.4 % (41.0-53.0); Hemoglobin 10.8 g/dL (13.5-17.5); Lymphocytes # (auto) 0.9 10 ^3/uL (0.4-5.4); Lymphocytes % (auto) 11.6 % (10.0-50.0); Mean Corpuscular Hemoglobin 30.2 pg (28.0-32.0); Mean Corpuscular Hgb Conc. 34.5 g/dL (32.0-36.0); Mean Corpuscular Volume 87.6 fL (80.0-100.0); Monocytes # (auto) 0.8 10 ^3/uL (0-1.3); Monocytes % (auto) 10.4 % (0.0-12.0); Neutrophils # (auto) 5.4 10 ^3/uL (1.6-8.6); Nucleated Red Blood Cells % 0.1 %; Red Blood Cells 3.58 10^6/uL (4.5-5.90); Red Cell Distribution Width 14.6 % (11.8-14.3); White Blood Cell 7.4 10^3/uL (4.4-10.8)
[2022-03-10 05:24] LABS: Albumin 2.3 g/dL (3.4-5.0); BUN/Creatinine Ratio 17.6; Calcium 8.3 mg/dL (8.5-10.1)
[2022-03-10 05:27] LABS: Bilirubin, Total 0.7 mg/dL (0.2-1.0); Total Protein 5.3 g/dL (6.4-8.2)
[2022-03-10] MEDS: ACCU-CHEK COMFORT CURVE STRIP VI SCH ×4 (05:31→23:46)
[2022-03-10] MEDS: Ensure Enlive Strawberry 8oz Bottle PO SCH ×4 (05:31→22:12)
[2022-03-10] MEDS: InsuLIN REG 1unit/0.01ml Soln (100units/ml) SC SCH ×4 (05:49→23:50)
[2022-03-10 08:00] VITALS: BP 130/71
[2022-03-10 12:00] VITALS: BP 131/71
[2022-03-10 16:00] VITALS: BP 150/70
[2022-03-10 20:00] VITALS: BP 135/67
[2022-03-10] MEDS: TEMAZEPAM 15 MG CAP PO PRN (21:48)
[2022-03-10] MEDS: CARVEDILOL 3.125 MG TAB PO SCH (21:49)
[2022-03-11] VITALS: BP 134/66
[2022-03-11 00:56] VITALS: BP 134/66
[2022-03-11 04:00] VITALS: BP 154/77
[2022-03-11 04:58] LABS: Basophils # (auto) 0.1 10 ^3/uL (0-0.2); Basophils % (auto) 1.3 % (0.0-2.0); Eosinophils # (auto) 0.3 10 ^3/uL (0-0.8); Eosinophils % (auto) 3.8 % (0.0-7.0); Hematocrit 32.8 % (41.0-53.0); Hemoglobin 11.4 g/dL (13.5-17.5); Lymphocytes % (auto) 13.5 % (10.0-50.0); Mean Corpuscular Hemoglobin 30.4 pg (28.0-32.0); Mean Corpuscular Hgb Conc. 34.8 g/dL (32.0-36.0); Mean Corpuscular Volume 87.4 fL (80.0-100.0); Monocytes # (auto) 0.7 10 ^3/uL (0-1.3); Monocytes % (auto) 9.8 % (0.0-12.0); Neutrophils # (auto) 5.3 10 ^3/uL (1.6-8.6); Neutrophils % (auto) 71.6 % (37.0-80.0); Red Blood Cells 3.75 10^6/uL (4.5-5.90); Red Cell Distribution Width 14.6 % (11.8-14.3); White Blood Cell 7.4 10^3/uL (4.4-10.8)
[2022-03-11 05:17] LABS: Albumin 2.4 g/dL (3.4-5.0); Calcium 8.4 mg/dL (8.5-10.1); Potassium 4.5 mmol/L (3.5-5.1)
[2022-03-11 05:21] LABS: Bilirubin, Total 0.6 mg/dL (0.2-1.0); Total Protein 5.8 g/dL (6.4-8.2)
[2022-03-11] MEDS: ACCU-CHEK COMFORT CURVE STRIP VI SCH ×4 (05:51→21:42)
[2022-03-11] MEDS: InsuLIN REG 1unit/0.01ml Soln (100units/ml) SC SCH ×4 (05:51→21:47)
[2022-03-11] MEDS: Ensure Enlive Strawberry 8oz Bottle PO SCH ×4 (06:00→22:00)
[2022-03-11] MEDS: EMPAGLIFLOZIN 10 MG TAB PO SCH (06:42)
[2022-03-11 08:00] VITALS: BP 137/81
[2022-03-11] MEDS: BENAZEPRIL HCL 10 MG TAB PO SCH (10:00)
[2022-03-11] MEDS: CARVEDILOL 3.125 MG TAB PO SCH ×2 (12:36→21:45)
[2022-03-11 18:00] VITALS: BP 151/72
[2022-03-11] MEDS: DOCUSATE SOD 100 MG CAP PO SCH (21:42)
[2022-03-11] MEDS: TEMAZEPAM 15 MG CAP PO PRN (21:43)
[2022-03-11 22:00] VITALS: BP 157/80
[2022-03-12 05:00] VITALS: BP 131/53
[2022-03-12] MEDS: Ensure Enlive Strawberry 8oz Bottle PO SCH ×2 (06:00→11:21)
[2022-03-12] MEDS: InsuLIN REG 1unit/0.01ml Soln (100units/ml) SC SCH ×2 (06:00→11:22)
[2022-03-12] MEDS: EMPAGLIFLOZIN 10 MG TAB PO SCH ×2 (07:00→07:05)
[2022-03-12] MEDS: ACCU-CHEK COMFORT CURVE STRIP VI SCH ×2 (07:04→11:22)
[2022-03-12] MEDS: DOCUSATE SOD 100 MG CAP PO SCH (08:27)
[2022-03-12] MEDS: CARVEDILOL 3.125 MG TAB PO SCH (08:29)
[2022-03-12] MEDS: BENAZEPRIL HCL 10 MG TAB PO SCH (08:29)
[2022-03-12 08:41] VITALS: BP 136/71
[2022-03-12] MEDS ORDERED: DAPAGLIFLOZIN 5 MG TAB PO SCH (10:00)
[2022-03-12 13:24] VITALS: BP 95/50
[2022-03-12 14:13] VITALS: BP 119/56
== END 2022-03-12 15:16 | disposition home or self-care (01) | DRG 637 ==
LOC: EDBD 06:13 → ER 06:13 → DOU IN ICU 17:53 → TELE-EAST 03-11 18:32
PROVIDERS: ADMIT Internal Medicine Cardiovascular Disease; ATTEND Internal Medicine Cardiovascular Disease
DX: E11.649 Type 2 diabetes mellitus with hypoglycemia without coma (principal); I50.23 Acute on chronic systolic (congestive) heart failure; I42.0 Dilated cardiomyopathy; R55 Syncope and collapse; D64.9 Anemia, unspecified; E87.6 Hypokalemia; R29.6 Repeated falls; I11.0 Hypertensive heart disease with heart failure; Z95.810 Presence of automatic (implantable) cardiac defibrillator; Z95.5 Presence of coronary angioplasty implant and graft; Z20.822 Contact with and (suspected) exposure to COVID-19
CPT/HCPCS: 36415; 70450; 71045; 80053; 81001; 82150; 82962; 83036; 83690; 83735; 83880; 84484; 85025; 87081; 87426; 93005; 96361; 96374; 96376; 97116; 97163; 97530; G0378; J1815

== ENCOUNTER 2022-04-04 15:29 | Inpatient (IN) | payer MEDICARE, OTHER ==
[~2022-04-04] VITALS: Ht 177.8 cm; Wt 104.5 kg
[~2022-04-04 15:29] MED LIST changes: +AMIO200T33 PO; +MULT-1018 PO; +OMEG120015 PO; +TAM04C PO
[2022-04-04] MEDS ORDERED: SODIUM CHLORIDE 0.9% 1,000 ML IV ONE (15:45)
[2022-04-04 16:50] LABS: Basophils # (auto) 0 10 ^3/uL (0-0.2); Basophils % (auto) 0.1 % (0.0-2.0); Eosinophils # (auto) 0 10 ^3/uL (0-0.8); Eosinophils % (auto) 0.1 % (0.0-7.0); Hematocrit 35.3 % (41.0-53.0); Hemoglobin 11.9 g/dL (13.5-17.5); Lymphocytes # (auto) 0.6 10 ^3/uL (0.4-5.4); Lymphocytes % (auto) 3.8 % (10.0-50.0); Mean Corpuscular Hemoglobin 29.3 pg (28.0-32.0); Mean Corpuscular Hgb Conc. 33.7 g/dL (32.0-36.0); Monocytes # (auto) 0.8 10 ^3/uL (0-1.3); Monocytes % (auto) 5.3 % (0.0-12.0); Neutrophils # (auto) 14.1 10 ^3/uL (1.6-8.6); Neutrophils % (auto) 90.7 % (37.0-80.0); Red Blood Cells 4.06 10^6/uL (4.5-5.90); Red Cell Distribution Width 15.1 % (11.8-14.3); White Blood Cell 15.6 10^3/uL (4.4-10.8)
[2022-04-04 17:07] LABS: BUN/Creatinine Ratio 14.5; Calcium 8.4 mg/dL (8.5-10.1); Potassium 3.1 mmol/L (3.5-5.1)
[2022-04-04 17:10] LABS: Bilirubin, Total 0.6 mg/dL (0.2-1.0); Total Protein 5.6 g/dL (6.4-8.2)
[2022-04-04] MEDS ORDERED: AZITHROMYCIN 500MG/ 250ML 250 ML IV ONE (18:30)
[2022-04-04] MEDS ORDERED: cefTRIAXone 1GM/50ML D5W 50 ML IV ONE (18:30)
[2022-04-04] MEDS ORDERED: MORPHINE SULFATE INJ 2 MG/ml SYRG IV PRN (21:00)
[2022-04-04] MEDS ORDERED: ACETAMINOPHEN 325 MG TAB PO PRN (21:00)
[2022-04-04] MEDS ORDERED: ONDANSETRON HCL 4 MG/2 ML VIAL IV PRN (21:00)
[2022-04-04] MEDS ORDERED: DEXTROSE (50%) 50ML SYRG IV PRN (21:00)
[2022-04-04] MEDS ORDERED: NITROGLYCERIN 0.4 MG SL TAB SL PRN (21:00)
[2022-04-04] MEDS ORDERED: POTASSIUM EFFERVESENT TAB 25 MEQ PO ONE (21:15)
[2022-04-04] MEDS ORDERED: FUROSEMIDE 20 MG/2 ML VIAL IV ONE (21:45)
[2022-04-04 21:48] LABS: Cholesterol 148 mg/dL (< 200); HDL Cholesterol 40 mg/dL (40-59); LDL Cholesterol 75 mg/dL (< 100); Triglycerides 115 mg/dL (< 150)
[2022-04-04 22:13] LABS: Urine Bacteria NONE SEEN /hpf (None Seen); Urine Blood 1+ /uL (Negative); Urine Specific Gravity 1.012 (1.001-1.035); Urine WBC 4 /hpf (0 - 3)
[2022-04-04] MEDS: ACCU-CHEK COMFORT CURVE STRIP VI SCH (23:07)
[2022-04-04] MEDS: InsuLIN REG 1unit/0.01ml Soln (100units/ml) SC SCH (23:11)
[2022-04-04] MEDS: SODIUM CHLORIDE 0.9% 1,000 ML IV SCH (23:13)
[2022-04-05 06:43] LABS: Basophils # (auto) 0.1 10 ^3/uL (0-0.2); Basophils % (auto) 0.5 % (0.0-2.0); Eosinophils # (auto) 0.1 10 ^3/uL (0-0.8); Eosinophils % (auto) 0.8 % (0.0-7.0); Hematocrit 33.7 % (41.0-53.0); Hemoglobin 11.7 g/dL (13.5-17.5); Lymphocytes # (auto) 0.8 10 ^3/uL (0.4-5.4); Mean Corpuscular Hemoglobin 29.8 pg (28.0-32.0); Mean Corpuscular Hgb Conc. 34.6 g/dL (32.0-36.0); Mean Corpuscular Volume 86.1 fL (80.0-100.0); Monocytes # (auto) 0.6 10 ^3/uL (0-1.3); Monocytes % (auto) 5.4 % (0.0-12.0); Neutrophils % (auto) 86.3 % (37.0-80.0); Red Blood Cells 3.92 10^6/uL (4.5-5.90); Red Cell Distribution Width 15.1 % (11.8-14.3); White Blood Cell 11.5 10^3/uL (4.4-10.8)
[2022-04-05] MEDS: InsuLIN REG 1unit/0.01ml Soln (100units/ml) SC SCH ×4 (07:00→22:23)
[2022-04-05] MEDS: ACCU-CHEK COMFORT CURVE STRIP VI SCH ×4 (07:03→22:22)
[2022-04-05 07:12] LABS: BUN/Creatinine Ratio 20.8; Bilirubin, Total 0.7 mg/dL (0.2-1.0); Calcium 8.2 mg/dL (8.5-10.1); Total Protein 5.9 g/dL (6.4-8.2)
[2022-04-05 07:47] LABS: Potassium 2.7 mmol/L (3.5-5.1)
[2022-04-05] MEDS: cefTRIAXone 1GM/50ML D5W 50 ML IV SCH (12:45)
[2022-04-05] MEDS: ENOXAPARIN SOD 30 MG/0.3 ML SYRINGE SC SCH (12:45)
[2022-04-05] MEDS: SODIUM CHLORIDE 0.9% 1,000 ML IV SCH (14:40)
[2022-04-05] MEDS: AZITHROMYCIN 500MG/ 250ML 250 ML IV SCH (14:41)
[2022-04-05] MEDS ORDERED: POTASSIUM EFFERVESENT TAB 25 MEQ PO ONE (21:15)
[2022-04-05 22:43] VITALS: BP 147/80
[2022-04-05] MEDS ORDERED: RIVA10TA PO (23:22)
[2022-04-05] MEDS ORDERED: BENA5TAB9 PO (23:40)
[2022-04-05] MEDS ORDERED: VENL25TA33 PO (23:40)
[2022-04-05] MEDS ORDERED: MEGE40TA4 PO (23:40)
[2022-04-06 05:00] VITALS: BP 151/72
[2022-04-06] MEDS: SODIUM CHLORIDE 0.9% 1,000 ML IV SCH ×2 (05:00→05:13)
[2022-04-06] MEDS: ACCU-CHEK COMFORT CURVE STRIP VI SCH ×4 (06:13→22:18)
[2022-04-06] MEDS: InsuLIN REG 1unit/0.01ml Soln (100units/ml) SC SCH ×4 (06:14→22:25)
[2022-04-06 09:31] VITALS: BP 157/79
[2022-04-06] MEDS: cefTRIAXone 1GM/50ML D5W 50 ML IV SCH (10:22)
[2022-04-06] MEDS: ENOXAPARIN SOD 30 MG/0.3 ML SYRINGE SC SCH (10:22)
[2022-04-06 10:32] LABS: Albumin 1.9 g/dL (3.4-5.0); BUN/Creatinine Ratio 39.5; Calcium 8.3 mg/dL (8.5-10.1); Potassium 3.1 mmol/L (3.5-5.1)
[2022-04-06 10:35] LABS: Bilirubin, Total 0.8 mg/dL (0.2-1.0)
[2022-04-06] MEDS: AZITHROMYCIN 500MG/ 250ML 250 ML IV SCH (13:00)
[2022-04-06 13:50] VITALS: BP 151/71
[2022-04-06] MEDS ORDERED: POTASSIUM EFFERVESENT TAB 25 MEQ PO ONE (14:45)
[2022-04-06 17:04] VITALS: BP 154/83
[2022-04-06 20:00] VITALS: BP 162/83
[2022-04-06] MEDS: HYDROcodone-ACET 5/325MG TAB PO PRN (20:12)
[2022-04-06 22:00] VITALS: BP 162/83
[2022-04-06] MEDS ORDERED: hydrALAZINE HCL 20 MG/ML VL IV SCH (22:00)
[2022-04-06] MEDS: TEMAZEPAM 15 MG CAP PO PRN (22:17)
[2022-04-06] MEDS: hydrALAZINE HCL 20 MG/ML VL IV PRN (22:18)
[2022-04-06] MEDS: INSULIN LANTUS (GLARGINE) 1 /0.01ml (100units/ml) SC SCH (22:24)
[2022-04-07 01:00] VITALS: BP 143/76
[2022-04-07 05:00] VITALS: BP 160/82
[2022-04-07] MEDS: ACCU-CHEK COMFORT CURVE STRIP VI SCH ×4 (06:06→21:22)
[2022-04-07] MEDS: InsuLIN REG 1unit/0.01ml Soln (100units/ml) SC SCH ×4 (06:12→21:22)
[2022-04-07 08:43] VITALS: BP 162/83
[2022-04-07] MEDS: ENOXAPARIN SOD 30 MG/0.3 ML SYRINGE SC SCH (09:40)
[2022-04-07] MEDS: hydrALAZINE HCL 20 MG/ML VL IV PRN ×2 (09:40→19:02)
[2022-04-07] MEDS: cefTRIAXone 1GM/50ML D5W 50 ML IV SCH (09:40)
[2022-04-07 12:43] VITALS: BP 160/76
[2022-04-07] MEDS: SODIUM CHLORIDE 0.9% 1,000 ML IV SCH (15:40)
[2022-04-07 16:43] VITALS: BP 165/83
[2022-04-07] MEDS: INSULIN LANTUS (GLARGINE) 1 /0.01ml (100units/ml) SC SCH (21:26)
[2022-04-07 22:00] VITALS: BP 171/83
[2022-04-07] MEDS ORDERED: hydrALAZINE HCL 20 MG/ML VL IV ONE (23:45)
[2022-04-08] MEDS: hydrALAZINE HCL 20 MG/ML VL IV PRN (06:01)
[2022-04-08] MEDS: DOCUSATE SOD 100 MG CAP PO PRN (06:01)
[2022-04-08] MEDS: InsuLIN REG 1unit/0.01ml Soln (100units/ml) SC SCH ×4 (07:00→23:12)
[2022-04-08] MEDS: ACCU-CHEK COMFORT CURVE STRIP VI SCH ×4 (07:25→23:03)
[2022-04-08 08:00] VITALS: BP 162/79
[2022-04-08] MEDS: SODIUM CHLORIDE 0.9% 1,000 ML IV SCH (08:20)
[2022-04-08] MEDS: ENOXAPARIN SOD 30 MG/0.3 ML SYRINGE SC SCH (09:08)
[2022-04-08] MEDS: cefTRIAXone 1GM/50ML D5W 50 ML IV SCH (09:08)
[2022-04-08 09:47] VITALS: BP 162/79
[2022-04-08 13:10] VITALS: BP 162/83
[2022-04-08] MEDS ORDERED: CARVEDILOL 12.5 MG TAB PO ONE (13:15)
[2022-04-08] MEDS: HYDROcodone-ACET 5/325MG TAB PO PRN (15:01)
[2022-04-08 17:24] VITALS: BP 152/80
[2022-04-08 22:00] VITALS: BP 158/51
[2022-04-08] MEDS: SACUBITRIL-VALSARTAN 24mg/26mg TAB PO SCH (23:10)
[2022-04-08] MEDS: CARVEDILOL 12.5 MG TAB PO SCH (23:11)
[2022-04-08] MEDS: INSULIN LANTUS (GLARGINE) 1 /0.01ml (100units/ml) SC SCH (23:12)
[2022-04-09] MEDS: HYDROcodone-ACET 5/325MG TAB PO PRN (03:48)
[2022-04-09 05:00] VITALS: BP 137/78
[2022-04-09] MEDS: InsuLIN REG 1unit/0.01ml Soln (100units/ml) SC SCH ×4 (05:46→21:46)
[2022-04-09] MEDS: ACCU-CHEK COMFORT CURVE STRIP VI SCH ×4 (05:46→21:47)
[2022-04-09 09:00] VITALS: BP 126/70
[2022-04-09] MEDS: cefTRIAXone 1GM/50ML D5W 50 ML IV SCH (09:28)
[2022-04-09] MEDS: ENOXAPARIN SOD 30 MG/0.3 ML SYRINGE SC SCH (09:54)
[2022-04-09] MEDS: SACUBITRIL-VALSARTAN 24mg/26mg TAB PO SCH ×2 (09:54→21:46)
[2022-04-09] MEDS: CARVEDILOL 12.5 MG TAB PO SCH ×2 (09:55→21:45)
[2022-04-09 13:00] VITALS: BP 144/73
[2022-04-09 16:38] VITALS: BP 149/73
[2022-04-09] MEDS: Juven Orange Powder PACKET 27.5gm PO SCH (21:46)
[2022-04-09] MEDS: INSULIN LANTUS (GLARGINE) 1 /0.01ml (100units/ml) SC SCH (21:47)
[2022-04-09 22:00] VITALS: BP 152/69
[2022-04-10] MEDS: TEMAZEPAM 15 MG CAP PO PRN (01:00)
[2022-04-10 05:00] VITALS: BP 154/79
[2022-04-10] MEDS: ACCU-CHEK COMFORT CURVE STRIP VI SCH ×4 (05:29→21:23)
[2022-04-10] MEDS: InsuLIN REG 1unit/0.01ml Soln (100units/ml) SC SCH ×4 (05:29→21:23)
[2022-04-10 06:30] LABS: Basophils # (auto) 0.1 10 ^3/uL (0-0.2); Basophils % (auto) 0.7 % (0.0-2.0); Eosinophils # (auto) 0.2 10 ^3/uL (0-0.8); Eosinophils % (auto) 1.8 % (0.0-7.0); Hematocrit 37.4 % (41.0-53.0); Lymphocytes # (auto) 0.9 10 ^3/uL (0.4-5.4); Lymphocytes % (auto) 9.2 % (10.0-50.0); Mean Corpuscular Hemoglobin 29.9 pg (28.0-32.0); Mean Corpuscular Hgb Conc. 34.7 g/dL (32.0-36.0); Monocytes # (auto) 0.8 10 ^3/uL (0-1.3); Monocytes % (auto) 8.2 % (0.0-12.0); Neutrophils # (auto) 7.7 10 ^3/uL (1.6-8.6); Neutrophils % (auto) 80.1 % (37.0-80.0); Red Blood Cells 4.35 10^6/uL (4.5-5.90); Red Cell Distribution Width 14.7 % (11.8-14.3); White Blood Cell 9.6 10^3/uL (4.4-10.8)
[2022-04-10 06:52] LABS: Calcium 7.8 mg/dL (8.5-10.1); Potassium 3.1 mmol/L (3.5-5.1)
[2022-04-10 06:54] LABS: BUN/Creatinine Ratio 21.1
[2022-04-10 08:53] VITALS: BP 111/88
[2022-04-10] MEDS: Juven Orange Powder PACKET 27.5gm PO SCH ×2 (10:00→22:00)
[2022-04-10] MEDS: cefTRIAXone 1GM/50ML D5W 50 ML IV SCH (12:01)
[2022-04-10] MEDS: SACUBITRIL-VALSARTAN 24mg/26mg TAB PO SCH ×2 (12:01→21:24)
[2022-04-10] MEDS: CARVEDILOL 12.5 MG TAB PO SCH ×2 (12:02→21:25)
[2022-04-10] MEDS: ENOXAPARIN SOD 30 MG/0.3 ML SYRINGE SC SCH (12:03)
[2022-04-10 13:00] VITALS: BP 157/81
[2022-04-10 16:36] VITALS: BP 116/76
[2022-04-10] MEDS ORDERED: POTASSIUM CHL 20 Meq TABLET PO ONE (19:45)
[2022-04-10] MEDS: INSULIN LANTUS (GLARGINE) 1 /0.01ml (100units/ml) SC SCH (21:22)
[2022-04-10] MEDS: HYDROcodone-ACET 5/325MG TAB PO PRN (21:28)
[2022-04-10 22:00] VITALS: BP 159/80
[2022-04-11 05:00] VITALS: BP 144/72
[2022-04-11] MEDS: InsuLIN REG 1unit/0.01ml Soln (100units/ml) SC SCH ×4 (06:31→22:11)
[2022-04-11] MEDS: ACCU-CHEK COMFORT CURVE STRIP VI SCH ×4 (06:32→22:09)
[2022-04-11 09:00] VITALS: BP 141/84
[2022-04-11] MEDS: cefTRIAXone 1GM/50ML D5W 50 ML IV SCH (09:37)
[2022-04-11] MEDS: ENOXAPARIN SOD 30 MG/0.3 ML SYRINGE SC SCH (09:37)
[2022-04-11] MEDS: SACUBITRIL-VALSARTAN 24mg/26mg TAB PO SCH ×2 (09:38→22:08)
[2022-04-11] MEDS: CARVEDILOL 12.5 MG TAB PO SCH ×2 (09:38→22:07)
[2022-04-11] MEDS: Juven Orange Powder PACKET 27.5gm PO SCH ×2 (09:39→22:00)
[2022-04-11] MEDS: HYDROcodone-ACET 5/325MG TAB PO PRN (10:37)
[2022-04-11 13:00] VITALS: BP 140/76
[2022-04-11 17:00] VITALS: BP 133/66
[2022-04-11 20:00] VITALS: BP 123/69
[2022-04-11 22:00] VITALS: BP 160/83
[2022-04-11] MEDS: INSULIN LANTUS (GLARGINE) 1 /0.01ml (100units/ml) SC SCH (22:00)
[2022-04-11] MEDS: TEMAZEPAM 15 MG CAP PO PRN (22:09)
[2022-04-12 05:00] VITALS: BP 142/68
[2022-04-12] MEDS: InsuLIN REG 1unit/0.01ml Soln (100units/ml) SC SCH ×4 (07:00→22:00)
[2022-04-12] MEDS: ACCU-CHEK COMFORT CURVE STRIP VI SCH ×4 (07:12→22:00)
[2022-04-12 08:00] VITALS: BP 123/69
[2022-04-12 09:00] VITALS: BP 146/71
[2022-04-12] MEDS: Juven Orange Powder PACKET 27.5gm PO SCH ×2 (10:00→22:00)
[2022-04-12] MEDS: ENOXAPARIN SOD 30 MG/0.3 ML SYRINGE SC SCH (10:11)
[2022-04-12] MEDS: cefTRIAXone 1GM/50ML D5W 50 ML IV SCH (10:11)
[2022-04-12] MEDS: SACUBITRIL-VALSARTAN 24mg/26mg TAB PO SCH ×2 (10:12→22:16)
[2022-04-12] MEDS: CARVEDILOL 12.5 MG TAB PO SCH ×2 (10:12→22:15)
[2022-04-12] MEDS: HYDROcodone-ACET 5/325MG TAB PO PRN (10:23)
[2022-04-12 13:00] VITALS: BP 141/69
[2022-04-12 20:00] VITALS: BP 123/69
[2022-04-12 22:00] VITALS: BP 167/79
[2022-04-12] MEDS: INSULIN LANTUS (GLARGINE) 1 /0.01ml (100units/ml) SC SCH (22:00)
[2022-04-12] MEDS: TEMAZEPAM 15 MG CAP PO PRN (22:15)
[2022-04-13 04:49] VITALS: BP 140/76
[2022-04-13] MEDS: InsuLIN REG 1unit/0.01ml Soln (100units/ml) SC SCH ×4 (06:03→21:36)
[2022-04-13] MEDS: ACCU-CHEK COMFORT CURVE STRIP VI SCH ×4 (06:29→21:33)
[2022-04-13 08:00] VITALS: BP 154/73
[2022-04-13 08:40] VITALS: BP 154/73
[2022-04-13] MEDS: SACUBITRIL-VALSARTAN 24mg/26mg TAB PO SCH ×2 (09:41→21:32)
[2022-04-13] MEDS: CARVEDILOL 12.5 MG TAB PO SCH ×2 (09:42→21:32)
[2022-04-13] MEDS: cefTRIAXone 1GM/50ML D5W 50 ML IV SCH (09:43)
[2022-04-13] MEDS: ENOXAPARIN SOD 30 MG/0.3 ML SYRINGE SC SCH (09:43)
[2022-04-13] MEDS: Juven Orange Powder PACKET 27.5gm PO SCH ×2 (09:44→22:00)
[2022-04-13 13:00] VITALS: BP 138/66
[2022-04-13] MEDS ORDERED: TAMSULOSIN HYDROCHLORIDE 0.4 MG CAP PO ONE (15:00)
[2022-04-13] MEDS ORDERED: POTASSIUM EFFERVESENT TAB 25 MEQ GT ONE (15:00)
[2022-04-13 16:28] LABS: BUN/Creatinine Ratio 14.9; Calcium 7.9 mg/dL (8.5-10.1); Potassium 3.7 mmol/L (3.5-5.1)
[2022-04-13 16:51] VITALS: BP 141/83
[2022-04-13] MEDS: TAMSULOSIN HYDROCHLORIDE 0.4 MG CAP PO SCH (17:53)
[2022-04-13] MEDS: TEMAZEPAM 15 MG CAP PO PRN (21:32)
[2022-04-13] MEDS: INSULIN LANTUS (GLARGINE) 1 /0.01ml (100units/ml) SC SCH (21:36)
[2022-04-13 22:00] VITALS: BP 148/76
[2022-04-14 05:00] VITALS: BP 121/74
[2022-04-14] MEDS: InsuLIN REG 1unit/0.01ml Soln (100units/ml) SC SCH ×4 (06:11→21:53)
[2022-04-14] MEDS: ACCU-CHEK COMFORT CURVE STRIP VI SCH ×4 (06:11→21:50)
[2022-04-14] MEDS ORDERED: Juven Orange Powder PACKET 27.5gm PO SCH (08:00)
[2022-04-14 09:00] VITALS: BP 126/62
[2022-04-14] MEDS: ENOXAPARIN SOD 30 MG/0.3 ML SYRINGE SC SCH (09:10)
[2022-04-14] MEDS: SACUBITRIL-VALSARTAN 24mg/26mg TAB PO SCH ×2 (09:10→21:48)
[2022-04-14] MEDS: cefTRIAXone 1GM/50ML D5W 50 ML IV SCH (09:10)
[2022-04-14] MEDS: CARVEDILOL 12.5 MG TAB PO SCH ×2 (09:11→21:49)
[2022-04-14] MEDS: Pro-Stat SF 30ml Vanilla GT SCH (10:00)
[2022-04-14] MEDS: DOCUSATE SOD 100 MG CAP PO PRN (12:52)
[2022-04-14] MEDS: Glucerna Carbsteady SHAKE Vanilla 8oz PO SCH ×2 (12:52→18:30)
[2022-04-14 13:00] VITALS: BP 139/72
[2022-04-14 17:00] VITALS: BP 140/67
[2022-04-14] MEDS: TAMSULOSIN HYDROCHLORIDE 0.4 MG CAP PO SCH (17:28)
[2022-04-14] MEDS: INSULIN LANTUS (GLARGINE) 1 /0.01ml (100units/ml) SC SCH (21:53)
[2022-04-14 22:00] VITALS: BP 109/76
[2022-04-15 05:00] VITALS: BP 127/64
[2022-04-15] MEDS: ACCU-CHEK COMFORT CURVE STRIP VI SCH ×4 (05:51→22:00)
[2022-04-15] MEDS: InsuLIN REG 1unit/0.01ml Soln (100units/ml) SC SCH ×4 (05:51→23:00)
[2022-04-15 08:15] VITALS: BP 115/68
[2022-04-15] MEDS: Glucerna Carbsteady SHAKE Vanilla 8oz PO SCH ×3 (08:25→18:07)
[2022-04-15] MEDS: cefTRIAXone 1GM/50ML D5W 50 ML IV SCH (08:52)
[2022-04-15] MEDS: ENOXAPARIN SOD 30 MG/0.3 ML SYRINGE SC SCH (08:52)
[2022-04-15] MEDS: SACUBITRIL-VALSARTAN 24mg/26mg TAB PO SCH ×2 (08:52→23:00)
[2022-04-15] MEDS: HYDROcodone-ACET 5/325MG TAB PO PRN ×2 (08:54→17:12)
[2022-04-15] MEDS: CARVEDILOL 12.5 MG TAB PO SCH ×2 (08:55→22:59)
[2022-04-15] MEDS: Pro-Stat SF 30ml Vanilla GT SCH (09:02)
[2022-04-15 12:05] VITALS: BP 113/57
[2022-04-15] MEDS ORDERED: ALBUMIN 5% 250 ML IV ONE (14:15)
[2022-04-15] MEDS ORDERED: ALBUMIN 25% 100 ML IV ONE (15:45)
[2022-04-15 16:10] VITALS: BP 139/70
[2022-04-15] MEDS: TAMSULOSIN HYDROCHLORIDE 0.4 MG CAP PO SCH (17:10)
[2022-04-15 22:00] VITALS: BP 137/69
[2022-04-15] MEDS: INSULIN LANTUS (GLARGINE) 1 /0.01ml (100units/ml) SC SCH (23:01)
[2022-04-16 05:00] VITALS: BP 142/68
[2022-04-16] MEDS: InsuLIN REG 1unit/0.01ml Soln (100units/ml) SC SCH ×4 (06:02→22:00)
[2022-04-16] MEDS: ACCU-CHEK COMFORT CURVE STRIP VI SCH ×4 (06:03→21:59)
[2022-04-16 07:30] VITALS: BP 130/59
[2022-04-16 08:30] VITALS: BP 130/67
[2022-04-16] MEDS: Pro-Stat SF 30ml Vanilla GT SCH (10:00)
[2022-04-16] MEDS: SACUBITRIL-VALSARTAN 24mg/26mg TAB PO SCH ×2 (10:03→21:59)
[2022-04-16] MEDS: CARVEDILOL 12.5 MG TAB PO SCH ×2 (10:04→21:59)
[2022-04-16] MEDS: ENOXAPARIN SOD 30 MG/0.3 ML SYRINGE SC SCH (10:04)
[2022-04-16] MEDS: Glucerna Carbsteady SHAKE Vanilla 8oz PO SCH ×3 (10:05→17:48)
[2022-04-16 13:30] VITALS: BP 129/65
[2022-04-16 16:30] VITALS: BP 150/72
[2022-04-16] MEDS: TAMSULOSIN HYDROCHLORIDE 0.4 MG CAP PO SCH (17:48)
[2022-04-16] MEDS: INSULIN LANTUS (GLARGINE) 1 /0.01ml (100units/ml) SC SCH (21:59)
[2022-04-16 22:00] VITALS: BP 155/74
[2022-04-16] MEDS: TEMAZEPAM 15 MG CAP PO PRN (23:43)
[2022-04-17 05:27] VITALS: BP 135/70
[2022-04-17] MEDS: ACCU-CHEK COMFORT CURVE STRIP VI SCH ×4 (06:36→22:24)
[2022-04-17] MEDS: InsuLIN REG 1unit/0.01ml Soln (100units/ml) SC SCH ×4 (06:36→22:00)
[2022-04-17 09:00] VITALS: BP 133/69
[2022-04-17] MEDS: Glucerna Carbsteady SHAKE Vanilla 8oz PO SCH ×3 (09:11→17:59)
[2022-04-17] MEDS: Pro-Stat SF 30ml Vanilla GT SCH (10:00)
[2022-04-17] MEDS: CARVEDILOL 12.5 MG TAB PO SCH ×2 (10:54→22:23)
[2022-04-17] MEDS: SACUBITRIL-VALSARTAN 24mg/26mg TAB PO SCH ×2 (10:54→22:23)
[2022-04-17 13:00] VITALS: BP 130/67
[2022-04-17 16:56] VITALS: BP 149/69
[2022-04-17] MEDS: TAMSULOSIN HYDROCHLORIDE 0.4 MG CAP PO SCH (17:28)
[2022-04-17 22:05] VITALS: BP 159/69
[2022-04-17] MEDS: DOCUSATE SOD 100 MG CAP PO PRN (22:24)
[2022-04-17] MEDS: TEMAZEPAM 15 MG CAP PO PRN (22:24)
[2022-04-17 23:23] VITALS: BP 137/68
[2022-04-18] MEDS: INSULIN LANTUS (GLARGINE) 1 /0.01ml (100units/ml) SC SCH ×2 (00:13→22:22)
[2022-04-18 05:15] VITALS: BP 133/67
[2022-04-18] MEDS: InsuLIN REG 1unit/0.01ml Soln (100units/ml) SC SCH ×4 (06:23→22:00)
[2022-04-18] MEDS: ACCU-CHEK COMFORT CURVE STRIP VI SCH ×4 (06:23→22:20)
[2022-04-18] MEDS: Glucerna Carbsteady SHAKE Vanilla 8oz PO SCH ×3 (08:19→18:21)
[2022-04-18 08:40] VITALS: BP 129/67
[2022-04-18] MEDS: CARVEDILOL 12.5 MG TAB PO SCH ×2 (10:00→22:20)
[2022-04-18] MEDS: SACUBITRIL-VALSARTAN 24mg/26mg TAB PO SCH ×2 (10:00→22:19)
[2022-04-18] MEDS: Pro-Stat SF 30ml Vanilla GT SCH (11:46)
[2022-04-18 12:54] VITALS: BP 118/71
[2022-04-18 16:35] VITALS: BP 137/84
[2022-04-18] MEDS: TAMSULOSIN HYDROCHLORIDE 0.4 MG CAP PO SCH (18:15)
[2022-04-18 20:20] VITALS: BP 158/70
[2022-04-18 22:00] VITALS: BP 158/70
[2022-04-19 05:00] VITALS: BP 150/70
[2022-04-19] MEDS: InsuLIN REG 1unit/0.01ml Soln (100units/ml) SC SCH ×3 (06:19→17:00)
[2022-04-19] MEDS: ACCU-CHEK COMFORT CURVE STRIP VI SCH ×3 (06:19→20:25)
[2022-04-19 06:49] LABS: Basophils # (auto) 0.1 10 ^3/uL (0-0.2); Basophils % (auto) 1.3 % (0.0-2.0); Eosinophils # (auto) 0.1 10 ^3/uL (0-0.8); Eosinophils % (auto) 1.6 % (0.0-7.0); Hemoglobin 11.1 g/dL (13.5-17.5); Lymphocytes # (auto) 0.8 10 ^3/uL (0.4-5.4); Lymphocytes % (auto) 12.7 % (10.0-50.0); Mean Corpuscular Hemoglobin 29.1 pg (28.0-32.0); Mean Corpuscular Hgb Conc. 33.7 g/dL (32.0-36.0); Mean Corpuscular Volume 86.3 fL (80.0-100.0); Monocytes # (auto) 0.6 10 ^3/uL (0-1.3); Neutrophils # (auto) 4.8 10 ^3/uL (1.6-8.6); Neutrophils % (auto) 75.4 % (37.0-80.0); Nucleated Red Blood Cells % 0.1 %; Potassium 3.7 mmol/L (3.5-5.1); Red Blood Cells 3.83 10^6/uL (4.5-5.90); White Blood Cell 6.3 10^3/uL (4.4-10.8)
[2022-04-19 07:10] LABS: BUN/Creatinine Ratio 17.9; Bilirubin, Total 0.9 mg/dL (0.2-1.0); Total Protein 5.8 g/dL (6.4-8.2)
[2022-04-19 08:00] VITALS: BP 139/69
[2022-04-19 08:41] VITALS: BP 139/69
[2022-04-19] MEDS: Glucerna Carbsteady SHAKE Vanilla 8oz PO SCH ×3 (10:43→18:00)
[2022-04-19] MEDS: Pro-Stat SF 30ml Vanilla GT SCH (10:43)
[2022-04-19] MEDS: SACUBITRIL-VALSARTAN 24mg/26mg TAB PO SCH (10:44)
[2022-04-19] MEDS: CARVEDILOL 12.5 MG TAB PO SCH (10:44)
[2022-04-19 11:20] VITALS: BP 102/58
[2022-04-19 16:47] VITALS: BP 149/71
[2022-04-19] MEDS: TAMSULOSIN HYDROCHLORIDE 0.4 MG CAP PO SCH (18:00)
== END 2022-04-19 21:57 | DRG 725 ==
LOC: EDBD 15:29 → EDSEX 15:29 → ER 15:37 → TELE 21:04 → TELE-WESTW 04-05 22:07
PROVIDERS: ADMIT Nurse Practitioner Family; ATTEND Internal Medicine Cardiovascular Disease
DX: N40.1 Benign prostatic hyperplasia with lower urinary tract symptoms (principal); G93.41 Metabolic encephalopathy; N13.6 Pyonephrosis; I50.22 Chronic systolic (congestive) heart failure; R64 Cachexia; N17.9 Acute kidney failure, unspecified; N13.9 Obstructive and reflux uropathy, unspecified; Z20.822 Contact with and (suspected) exposure to COVID-19; E11.9 Type 2 diabetes mellitus without complications; E87.6 Hypokalemia; E11.65 Type 2 diabetes mellitus with hyperglycemia; E11.40 Type 2 diabetes mellitus with diabetic neuropathy, unspecified; E11.21 Type 2 diabetes mellitus with diabetic nephropathy; I11.0 Hypertensive heart disease with heart failure; I95.1 Orthostatic hypotension; I25.10 Atherosclerotic heart disease of native coronary artery without angina pectoris; K59.00 Constipation, unspecified; Z68.31 Body mass index [BMI] 31.0-31.9, adult; R62.7 Adult failure to thrive; Z79.899 Other long term (current) drug therapy; Z98.61 Coronary angioplasty status
CPT/HCPCS: 36415; 71045; 72131; 74176; 76775; 80048; 80053; 80061; 81001; 82607; 82962; 83605; 83690; 83880; 84154; 84443; 84484; 85025; 87040; 87077; 87081; 87086; 87426; 93005; 96365; 97110; 97116; 97163; 97530; 99291; G0378; J0696; J1815; P9047